=== PATIENT | male | born 1975 | race Hispanic/Latino ===

== ENCOUNTER 2017-04-01 10:50 | Emergency (ER) | payer MEDICAID ==
[2017-04-01 11:01] VITALS: RESP 18; TEMP 97.9
--- NOTE | 2017-04-01 11:21 | C.PDOC ---
History Of Present Illness <Marylou Huertas - Last Filed: 04/01/17 11:18> <Yobani Steve - Last Filed: 04/01/17 11:32> Pt presents to the ED for wound check. Pt sustained laceration to upper, right lower leg 2 days ago; seen in ED with laceration repair, shahla applied. Denies fever, chills or any other complaints. (Marylou Huertas) History Per: Patient History/Exam Limitations: no limitations Onset/Duration Of Symptoms: Days Current Symptoms Are (Timing): Better Location Of Injury: Right: Leg Recent travel outside of the [place]: No <Marylou Huertas - Last Filed: 04/01/17 11:18> <Yobani Steve - Last Filed: 04/01/17 11:32> Time Seen by Provider: 04/01/17 11:08 Chief Complaint (Nursing): Abnormal Skin Integrity Past Medical History Reviewed: Historical Data, Nursing Documentation, Vital Signs - Medical History PMH: Anxiety, Bipolar Disorder, Depression Family History: States: Unknown Family Hx - Social History Hx Alcohol Use: Yes Hx Substance Use: Yes (LSD and Cocaine) - Immunization History Hx Tetanus Toxoid Vaccination: No Hx Influenza Vaccination: No Hx Pneumococcal Vaccination: No <Marylou Huertas - Last Filed: 04/01/17 11:18> Review Of Systems Except As Marked, All Systems Reviewed And Found Negative. Constitutional: Negative for: Fever, Chills Skin: Positive for: Other (wound check: laceration to right lower leg) <Marylou Huertas - Last Filed: 04/01/17 11:18> Physical Exam - Physical Exam Appears: Non-toxic, No Acute Distress Skin: Warm, Dry Head: Atraumatic, Normacephalic Extremity: Normal ROM Neurological/Psych: Oriented x3, Normal Speech, Normal Motor, Normal Sensation <Marylou Huertas - Last Filed: 04/01/17 11:18> - Physical Exam Extremity: Other (13 shahla intact to right lower upper leg, no fluctuance, no tenderness or evidence of cellulitis) <Yobani Steve - Last Filed: 04/01/17 11:32> ED Course And Treatment O2 Sat by Pulse Oximetry: 100 <Marylou Huertas - Last Filed: 04/01/17 11:18> Medical Decision Making <Marylou Huertas - Last Filed: 04/01/17 11:18> <Yobani Steve - Last Filed: 04/01/17 11:32> Medical Decision Making: wound care and check POD 2 stapled by THIS MD Excellent healing, no fluctuance, no surrounding cellulitis gently cleaned with soap and water and bandaged properly. (Yobani Steve) Disposition <Marylou Huertas - Last Filed: 04/01/17 11:18> Doctor Will See Patient In The: Office Counseled Patient/Family Regarding: Studies Performed, Diagnosis - Disposition Disposition Time: 11:29 <Yobani Steve - Last Filed: 04/01/17 11:32> - Disposition Disposition: HOME/ ROUTINE Condition: GOOD Prescriptions: Bacitracin OINT 1 applic TP DAILY #1 tube - Clinical Impression Clinical Impression: Encounter for wound re-check - PA / [employer] / Resident Statement MD/DO has reviewed & agrees with the documentation as recorded. - Scribe Statement The provider has reviewed the documentation as recorded by the Scribe <Marylou Huertas - Last Filed: 04/01/17 11:18> <Yobani Steve - Last Filed: 04/01/17 11:32> - Scribe Statement [place] All medical record entries made by the Scribe were at my direction and personally dictated by me. I have reviewed the chart and agree that the record accurately reflects my personal performance of the history, physical exam, medical decision making, and the department course for this patient. I have also personally directed, reviewed, and agree with the discharge instructions and disposition. (Marylou Huertas)
[2017-04-01] MEDS ORDERED: Bacitracin 500 Units/gm Oint Foilpak UD ONE (11:27)
[2017-04-01 11:39] VITALS: BP 157/95; PULSE 85
[2017-04-01] MEDS: Bacitracin 500 Units/gm Oint Foilpak UD TOP ONE (11:43)
[2017-04-01 11:47] VITALS: O2SAT 100
== END 2017-04-01 11:40 | disposition home or self-care (01) ==
LOC: C.ER 10:50
DX: S81.811D Laceration without foreign body, right lower leg, subsequent encounter (principal); X58.XXXD Exposure to other specified factors, subsequent encounter; Y92.89 Other specified places as the place of occurrence of the external cause